=== PATIENT | male | born 1965 | race Caucasian/White ===

== ENCOUNTER 2023-04-13 06:22 | Day surgery (SDC) | payer OTHER, SELFPAY ==
[2023-04-13 08:12] LABS: Glucose - Point of Care 210 mg/dl (70-99)
== END 2023-04-20 01:00 ==
LOC: GI 06:22
PROVIDERS: ATTENDING PHYSICIAN Internal Medicine
DX: I85.00 Esophageal varices without bleeding (principal); Z86.010 Personal history of colon polyps; Z53.8 Procedure and treatment not carried out for other reasons
CPT/HCPCS: 45378; 82962; G0378

== ENCOUNTER → 2023-06-10 14:10 | Outpatient (REF) | payer OTHER, SELFPAY ==
[2023-06-10 14:13] LABS: % Basophils 1.1 % (0-2); % Immature Granulocytes 0.2 % (0-0.5); % Lymphocytes 21.9 % (20.5-51.1); % Monocytes 11.3 % (1.7-9.3); % Neutrophils 62.5 % (42.2-75.2); Absolute Basophils 0.1 10^3/uL (0-0.2); Absolute Eosinophils 0.1 10^3/uL (0-0.7); Absolute Monocytes 0.5 10^3/uL (0.1-0.6); Absolute Neutrophils 2.9 10^3/uL (1.4-6.5); Hematocrit 31.2 % (39.0-52.0); Hemoglobin 9.8 g/dL (13.0-18.0); Mean Corp Hgb Conc. 31.4 g/dL (33.0-37.0); Mean Corpuscular Hgb 27.1 pg (27.0-31.0); Mean Corpuscular Volume 86.4 fL (80.0-94.0); Mean Platelet Volume 12.5 fL (7.4-10.4); Nucleated Red Blood Cells % 0 % (-); Platelet Count 160 10^3/uL (130-400); Red Blood Cell Count 3.61 10^6/uL (4.70-6.10); Red Cell Dist. Width 22.1 % (11.5-14.5); White Blood Cell Count 4.6 10^3/uL (4.8-10.8)
== END ==
LOC: OIDL 14:10
PROVIDERS: ATTENDING PHYSICIAN Internal Medicine Hematology & Oncology
DX: D50.9 Iron deficiency anemia, unspecified (principal)
CPT/HCPCS: 85025

== ENCOUNTER → 2023-06-17 15:58 | Outpatient (REF) | payer OTHER, SELFPAY ==
[2023-06-17 15:28] LABS: % Basophils 1.1 % (0-2); % Immature Granulocytes 0.2 % (0-0.5); % Lymphocytes 21.7 % (20.5-51.1); % Monocytes 12.1 % (1.7-9.3); % Neutrophils 62.9 % (42.2-75.2); Absolute Basophils 0.1 10^3/uL (0-0.2); Absolute Eosinophils 0.1 10^3/uL (0-0.7); Absolute Monocytes 0.5 10^3/uL (0.1-0.6); Absolute Neutrophils 2.8 10^3/uL (1.4-6.5); Hematocrit 34.6 % (39.0-52.0); Hemoglobin 11.1 g/dL (13.0-18.0); Mean Corp Hgb Conc. 32.1 g/dL (33.0-37.0); Mean Corpuscular Hgb 27.9 pg (27.0-31.0); Mean Corpuscular Volume 86.9 fL (80.0-94.0); Mean Platelet Volume 12.6 fL (7.4-10.4); Nucleated Red Blood Cells % 0 % (-); Platelet Count 154 10^3/uL (130-400); Red Blood Cell Count 3.98 10^6/uL (4.70-6.10); Red Cell Dist. Width 21.1 % (11.5-14.5); White Blood Cell Count 4.5 10^3/uL (4.8-10.8)
== END ==
LOC: OIDL 15:58
PROVIDERS: ATTENDING PHYSICIAN Internal Medicine Hematology & Oncology
DX: D50.9 Iron deficiency anemia, unspecified (principal)
CPT/HCPCS: 85025

== ENCOUNTER → 2023-06-24 15:18 | Outpatient (REF) | payer OTHER, SELFPAY ==
[2023-06-24 14:24] LABS: % Eosinophils 1.6 % (0-6); % Immature Granulocytes 0.3 % (0-0.5); % Lymphocytes 20.3 % (20.5-51.1); % Monocytes 8.7 % (1.7-9.3); % Neutrophils 68.1 % (42.2-75.2); Absolute Basophils 0.1 10^3/uL (0-0.2); Absolute Eosinophils 0.1 10^3/uL (0-0.7); Absolute Lymphocytes 1.2 10^3/uL (1.2-3.4); Absolute Monocytes 0.5 10^3/uL (0.1-0.6); Absolute Neutrophils 3.9 10^3/uL (1.4-6.5); Hematocrit 36.2 % (39.0-52.0); Hemoglobin 12.1 g/dL (13.0-18.0); Mean Corp Hgb Conc. 33.4 g/dL (33.0-37.0); Mean Corpuscular Hgb 28.1 pg (27.0-31.0); Mean Corpuscular Volume 84.2 fL (80.0-94.0); Nucleated Red Blood Cells % 0 % (-); Platelet Count 180 10^3/uL (130-400); Red Cell Dist. Width 20.9 % (11.5-14.5); White Blood Cell Count 5.8 10^3/uL (4.8-10.8)
== END ==
LOC: OIDL 15:18
PROVIDERS: ATTENDING PHYSICIAN Internal Medicine Hematology & Oncology
DX: D50.9 Iron deficiency anemia, unspecified (principal)
CPT/HCPCS: 85025

== ENCOUNTER → 2023-07-08 15:34 | Outpatient (REF) | payer OTHER, SELFPAY ==
[2023-07-08 14:02] LABS: % Eosinophils 2.3 % (0-6); % Immature Granulocytes 0.3 % (0-0.5); % Lymphocytes 22.7 % (20.5-51.1); % Monocytes 9.9 % (1.7-9.3); % Neutrophils 63.8 % (42.2-75.2); Absolute Eosinophils 0.1 10^3/uL (0-0.7); Absolute Lymphocytes 0.9 10^3/uL (1.2-3.4); Absolute Monocytes 0.4 10^3/uL (0.1-0.6); Absolute Neutrophils 2.4 10^3/uL (1.4-6.5); Hematocrit 32.5 % (39.0-52.0); Hemoglobin 10.6 g/dL (13.0-18.0); Mean Corp Hgb Conc. 32.6 g/dL (33.0-37.0); Mean Corpuscular Hgb 29.4 pg (27.0-31.0); Mean Corpuscular Volume 90.3 fL (80.0-94.0); Nucleated Red Blood Cells % 0 % (-); Red Cell Dist. Width 22.1 % (11.5-14.5); White Blood Cell Count 3.8 10^3/uL (4.8-10.8)
[2023-07-08 14:20] LABS: Platelet Count 99 10^3/uL (130-400)
== END ==
LOC: OIDL 15:34
PROVIDERS: ATTENDING PHYSICIAN Internal Medicine Hematology & Oncology
DX: D50.9 Iron deficiency anemia, unspecified (principal)
CPT/HCPCS: 85025

== ENCOUNTER 2023-07-20 06:09 | Day surgery (SDC) | payer OTHER, SELFPAY ==
[2023-07-20 09:23] LABS: Glucose - Point of Care 429 mg/dl (70-99)
[2023-07-20 09:44] VITALS: BMI 31.8
[2023-07-20 09:45] VITALS: BMI 31.8
[2023-07-20 09:49] VITALS: BP 108/74
[2023-07-20 10:00] LABS: Glucose 394 mg/dl (70-99)
[2023-07-20] MEDS: NOVOLOG vial 8 UNITS SC (10:30)
[2023-07-20 12:41] VITALS: BP 80/70
[2023-07-20 12:43] VITALS: BP 92/65
[2023-07-20 12:43] LABS: Glucose - Point of Care 299 mg/dl (70-99)
[2023-07-20 12:51] VITALS: BP 93/53
[2023-07-20 13:00] VITALS: BP 93/50
== END 2023-07-20 13:21 | disposition home or self-care (01) ==
LOC: SDS 06:09
PROVIDERS: ATTENDING PHYSICIAN Internal Medicine
DX: Z12.11 Encounter for screening for malignant neoplasm of colon (principal); K51.40 Inflammatory polyps of colon without complications; K63.89 Other specified diseases of intestine; K64.8 Other hemorrhoids; K74.60 Unspecified cirrhosis of liver; I85.10 Secondary esophageal varices without bleeding; K29.70 Gastritis, unspecified, without bleeding; Z86.010 Personal history of colon polyps
CPT/HCPCS: 45385; 43239; 88305; 82947; 82962; 88342

== ENCOUNTER → 2023-09-16 16:10 | Outpatient (REF) | payer OTHER, SELFPAY ==
[2023-09-16 14:21] LABS: % Basophils 1.1 % (0-2); % Immature Granulocytes 0.2 % (0-0.5); % Monocytes 9.2 % (1.7-9.3); % Neutrophils 63.5 % (42.2-75.2); Absolute Basophils 0.1 10^3/uL (0-0.2); Absolute Eosinophils 0.1 10^3/uL (0-0.7); Absolute Lymphocytes 1.1 10^3/uL (1.2-3.4); Absolute Monocytes 0.4 10^3/uL (0.1-0.6); Hematocrit 36.4 % (39.0-52.0); Hemoglobin 12.4 g/dL (13.0-18.0); Mean Corp Hgb Conc. 34.1 g/dL (33.0-37.0); Mean Corpuscular Hgb 31.6 pg (27.0-31.0); Mean Corpuscular Volume 92.9 fL (80.0-94.0); Mean Platelet Volume 12.3 fL (7.4-10.4); Nucleated Red Blood Cells % 0 % (-); Platelet Count 114 10^3/uL (130-400); Red Blood Cell Count 3.92 10^6/uL (4.70-6.10); Red Cell Dist. Width 14.3 % (11.5-14.5); White Blood Cell Count 4.7 10^3/uL (4.8-10.8)
== END ==
LOC: OIDL 16:10
PROVIDERS: ATTENDING PHYSICIAN Internal Medicine Hematology & Oncology
DX: D50.9 Iron deficiency anemia, unspecified (principal)
CPT/HCPCS: 85025

== ENCOUNTER → 2023-10-07 16:18 | Outpatient (REF) | payer OTHER, SELFPAY ==
[2023-10-07 16:19] LABS: % Basophils 0.9 % (0-2); % Eosinophils 3.1 % (0-6); % Immature Granulocytes 0.2 % (0-0.5); % Lymphocytes 24.4 % (20.5-51.1); % Monocytes 8.7 % (1.7-9.3); % Neutrophils 62.7 % (42.2-75.2); Absolute Eosinophils 0.1 10^3/uL (0-0.7); Absolute Lymphocytes 1.1 10^3/uL (1.2-3.4); Absolute Monocytes 0.4 10^3/uL (0.1-0.6); Absolute Neutrophils 2.8 10^3/uL (1.4-6.5); Hematocrit 35.8 % (39.0-52.0); Hemoglobin 12.1 g/dL (13.0-18.0); Mean Corp Hgb Conc. 33.8 g/dL (33.0-37.0); Mean Corpuscular Hgb 30.8 pg (27.0-31.0); Mean Corpuscular Volume 91.1 fL (80.0-94.0); Mean Platelet Volume 11.9 fL (7.4-10.4); Nucleated Red Blood Cells % 0 % (-); Platelet Count 123 10^3/uL (130-400); Red Blood Cell Count 3.93 10^6/uL (4.70-6.10); Red Cell Dist. Width 14.5 % (11.5-14.5); White Blood Cell Count 4.5 10^3/uL (4.8-10.8)
== END ==
LOC: OIDL 16:18
PROVIDERS: ATTENDING PHYSICIAN Internal Medicine Hematology & Oncology
DX: D50.9 Iron deficiency anemia, unspecified (principal)
CPT/HCPCS: 85025

== ENCOUNTER → 2024-01-06 14:50 | Outpatient (REF) | payer OTHER, SELFPAY ==
[2024-01-06 15:02] LABS: % Basophils 1.3 % (0-2); % Eosinophils 2.4 % (0-6); % Immature Granulocytes 0.2 % (0-0.5); % Lymphocytes 22.6 % (20.5-51.1); % Monocytes 7.9 % (1.7-9.3); % Neutrophils 65.6 % (42.2-75.2); Absolute Basophils 0.1 10^3/uL (0-0.2); Absolute Eosinophils 0.1 10^3/uL (0-0.7); Absolute Monocytes 0.4 10^3/uL (0.1-0.6); Hematocrit 37.7 % (39.0-52.0); Hemoglobin 12.5 g/dL (13.0-18.0); Mean Corp Hgb Conc. 33.2 g/dL (33.0-37.0); Mean Corpuscular Hgb 30.9 pg (27.0-31.0); Mean Corpuscular Volume 93.3 fL (80.0-94.0); Mean Platelet Volume 11.8 fL (7.4-10.4); Nucleated Red Blood Cells % 0 % (-); Platelet Count 135 10^3/uL (130-400); Red Blood Cell Count 4.04 10^6/uL (4.70-6.10); Red Cell Dist. Width 13.2 % (11.5-14.5); White Blood Cell Count 4.6 10^3/uL (4.8-10.8)
== END ==
LOC: OIDL 14:50
PROVIDERS: ATTENDING PHYSICIAN Internal Medicine Hematology & Oncology
DX: D50.9 Iron deficiency anemia, unspecified (principal); I85.00 Esophageal varices without bleeding; N18.32 Chronic kidney disease, stage 3b
CPT/HCPCS: 85025

== ENCOUNTER → 2024-02-21 10:36 | Outpatient (REF) | payer OTHER, SELFPAY | LOC: HWCARD 10:36 | PROVIDERS: ATTENDING PHYSICIAN Nurse Practitioner Family; FAMILY PHYSICIAN Family Medicine | DX: D64.9 Anemia, unspecified (principal); I50.9 Heart failure, unspecified; I07.9 Rheumatic tricuspid valve disease, unspecified; R00.0 Tachycardia, unspecified | CPT/HCPCS: 71046; 93005 ==

== ENCOUNTER 2024-11-14 18:34 | Emergency (ER) | payer OTHER, SELFPAY ==
[2024-11-14 18:36] VITALS: BP 134/86
[2024-11-14 18:52] LABS: Hematocrit 35.7 % (39.0-52.0); Hemoglobin 11.5 g/dL (13.0-18.0); Mean Corp Hgb Conc. 32.2 g/dL (33.0-37.0); Mean Corpuscular Volume 87.9 fL (80.0-94.0); Nucleated Red Blood Cells % 0 % (-); Platelet Count 168 10^3/uL (130-400); Red Cell Dist. Width 17.2 % (11.5-14.5); Urine Character Cloudy (Clear)
[2024-11-14 19:08] LABS: Urine Squamous Cell 0-2 /LPF (Few)
[2024-11-14 19:09] LABS: Urine Red Blood Cell >100 /HPF (0-2)
[2024-11-14 19:31] LABS: ALT (SGPT) 24 U/L (0-50); AST (SGOT) 29 U/L (17-59); Albumin 4.6 g/dl (3.5-5.0); Alkaline Phosphatase 140 U/L (38-126); Blood Urea Nitrogen 27 mg/dl (9-20); Calcium 9.2 mg/dl (8.4-10.2); Carbon Dioxide 24 mmol/L (22-30); Chloride 104 mmol/L (98-107); Glucose 164 mg/dl (70-99); Potassium 4.0 mmol/L (3.5-5.1); Sodium 138 mmol/L (135-145); Total Protein 8.1 g/dl (6.3-8.2); eGFR > 60.00
[2024-11-14 22:13] VITALS: BMI 33.2
[2024-11-14 22:17] VITALS: BP 113/79
[2024-11-14 22:55] VITALS: BP 103/63
--- NOTE | 2024-11-14 23:42 | ED.GENMED ---
History of Present Illness
General
Chief Complaint: Male Genito-Urinary Symptoms
Source: patient, spouse and previous hospital records (Prior hospitalization November 2022. Hospitalized for right upper quadrant pain, found to have portal vein thrombosis related to cirrhosis. Also found to have atrial flutter, started on
Eliquis. Eliquis has since been discontinued.)
Exam Limitations: none
Time Seen by Provider: 11/14/24 22:08
Nursing documentation reviewed up to this point in time: agreed with
History of Present Illness
History of Present Illness:
This is a 59-year-old male who presents with his with complaints of gross hematuria that began mildly last night, persistent throughout the day today.
No history of similar episodes in the past.
He describes his urine as dark red, occasional clots. He denies any pain, no back pain nor flank pain, no suprapubic discomfort, no dysuria no urgency nor frequency. He does however note of vague fullness, heaviness right upper quadrant. He has
had no nausea or vomiting. No fever nor chills. No diarrhea nor constipation. Appetite has been good.
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
varices, nzg-giusgup-dccxpqtna diabetes, A-fib flutter. Hospitalized November 2022 due to right upper quadrant pain and found to have portal vein thrombosis at that time. Also noted to have atrial flutter. Started on Eliquis during that
hospitalization. Eliquis has since been discontinued. He takes no anticoagulants. No history of recurrent thrombosis.
Patient has no prior history of UTIs, no history of kidney stones but reports family history of kidney stones in his mom and brother. No history of BPH.
He does note intermittent mild dizziness, lightheadedness, sporadic in nature with last episode 3 weeks ago. Intermittent dizziness/lightheadedness has been an ongoing issue, overall mild and infrequent. 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
beta-alecia.
Review of records. Patient underwent screening colonoscopy July 2023.
Hospitalization November 2022 as above.
Prior to that hospitalized 2019 for GI bleed. Endoscopy and colonoscopy at that time showed grade 2 esophageal varices without evidence of recent bleeding. 1 polyp in the cecum.
Past History
Past History
ED Past Medical History: Arrthythmia (afib), CHF, HTN, Hypercholesterolemia, NIDDM and Other (Clotting disorder, congenital one kidney, hepatitis C status posttreatment, cirrhosis, esophageal varices, GI bleed)
ED Past Surgical History: Cardiac (VSD repair)
Social History
Tobacco: Non-smoker
Alcohol: None
Personal:
Living: with family
Employment: Employed
Family History
Family History: Other (Kidney stones in mother and brother)
Phy Exam
Physical Exam
Physical Exam:
GENERAL: 59-year-old gentleman appears his stated age, awake and alert, pleasant, appears in no acute distress. is accompanying.
EYE: anicteric
NECK: Supple, nontender, no meningismus, no significant adenopathy.
ENT: oral mucosa is moist. No rhinorrhea.
CARDIAC: Irregularly irregular at a rate of 100, 3/6 holosystolic murmur
LUNGS: Clear breath sounds bilaterally, no acute respiratory distress, no wheezes/rales/rhonchi
ABDOMEN: Rotund, soft, nondistended, without focal tenderness, no r/g, no cvat. normoactive BS.
NEUROLOGICAL: Alert and oriented x3, no focal neuro deficits. Gait is zhu and steady.
SKIN: Warm and dry, normal color, skin intact. No rash.
MUSCULOSKELETAL: No C/C/E. peripheral pulses are full and equal b/l. No palpable tenderness.
PSYCH: Normal and appropriate interaction.
Course
Orders/Labs/Results
Orders:
Orders
11/14/24 18:46
Complete Blood Count/With Diff Urgent
Comprehensive Metabolic Panel Urgent
Urine Microscopic Reflex Cult Urgent
Urine Reflex Culture from [facility] [Urinalysis Reflex To Culture] Urgent
Date Specimen was Collected: 11/14/24
Time Specimen was Collected: 18:38
Urine Culture Urgent
WILFRED Source: U
Specimen Description:
Date Specimen was Collected: 11/14/24
Time Specimen was Collected: 18:38
11/14/24 22:39
CT Abd/pel Without Iv Or Oral Urgent
Comment:
Reason For Exam: gross hematuria, R abd pain, hx solitary kidney
11/15/24 00:00
Doxycycline [Vibramycin] 100 mg PO NOW STA
Abnormal Lab Results
11/14/24
18:46
RBC 4.06 L 10^6/uL
(4.70-6.10)
Hgb 11.5 L g/dL
(13.0-18.0)
Hct 35.7 L %
(39.0-52.0)
MCHC 32.2 L g/dL
(33.0-37.0)
RDW 17.2 H %
(11.5-14.5)
MPV 11.4 H fL
(7.4-10.4)
Lymphocytes % 20.0 L %
(20.5-51.1)
Monocytes % 9.7 H %
(1.7-9.3)
BUN 27 H mg/dl
(9-20)
Glucose 164 H mg/dl
(70-99)
Alkaline Phosphatase 140 H U/L
(38-126)
Ur Occult Blood Reflex 4+ A
(Negative)
Leukocyte Esterase Rfl 1+ A
(Negative)
Urine RBC >100 A /HPF
(0-2)
Urine Bacteria (Reflex) Moderate A
(Negative)
Urine Glucose 4+ A
(Negative)
Urine Albumin (Reflex) 3+ A
(Neg - Trace)
11/14/24 18:46
10/01/25 18:46
Vital Signs
Initial and Last Documented VS:
Initial Vital Signs
Temp Pulse Resp BP Pulse Ox
98 F 120 18 134/86 99
11/14/24 18:36 11/14/24 18:36 11/14/24 18:36 11/14/24 18:36 11/14/24 18:36
Last Documented Vital Signs
Temp Pulse Resp BP Pulse Ox
98.1 F 111 14 103/63 100
11/14/24 22:55 11/14/24 22:55 11/14/24 22:55 11/14/24 22:55 11/14/24 23:44
MDM/Problems Addressed
Differential Diagnosis Includes:
Differential diagnosis includes:
UTI
Kidney stone
Hemorrhagic cystitis
prostatitis
Bladder cancer
Glomerulonephritis
coagulation disorder
Renal artery thrombosis
pyelonephritis
Trauma to the urinary tract
MDM/Problems Addressed:
Overall well in appearance.
Admits to intermittent mild vague discomfort right upper quadrant but no definitive pain, nothing to suggest renal colic.
He does have solitary kidney but he is unsure as to which side. Upon review of records, solitary kidney is on the left.
Due to concern for potential nonobstructive kidney stone, renal mass, as well as history of solitary kidney, chronic kidney disease will check CT of the abdomen and pelvis.
Labs thus far are reassuring with normal white blood cell count, mild but stable anemia with hemoglobin of 11.5. Normal platelet count.
Chemistries reveal creatinine of 1.2, stable and at his baseline. BUN of 27, at his baseline.
Urinalysis shows greater than 100 RBCs, 6-10 WBCs. +1 leukocyte esterase
Moderate bacteria.
Urine culture is pending.
Will plan to initiate antibiotic for coverage of potential UTI as cause for hematuria/hemorrhagic cystitis.
Ultimately will require follow-up with urology.
Chronic conditions affecting care: DM, HTN, Cardiomyopathy, Arrhythmia, Kidney disease and Other (Portal vein thrombosis/cirrhosis-prior GI bleeds. Previously maintained on anticoagulant which has since been discontinued.)
*Radiology
Radiology exam reviewed: radiology read reviewed
*Pulse Oximetry
SaO2: 100
Oxygen Mode of Delivery: Room air
Patient hypoxic: no
*Critical Care Note
Total Time (30-74mins, 75-104mins- exclusive of procedures): Not Applicable
Patient Management
Social determinants of health affecting care: Other (Patient has a planned trip to [facility], leaving tomorrow, scheduled to return in 3 weeks time.)
Update Note
Update Note:
00:01
Patient remains comfortable.
CT abdomen pelvis shows solitary left kidney. No intrarenal nor ureteric stone. No hydronephrosis. Several cysts within the left kidney. No bladder calculus, no urinary bladder wall thickening nor soft tissue stranding. Prominent prostate gland.
Small focus of diminished attenuation along the left posterior lateral uncinate margin of the pancreas, similar to previous. Minor soft tissue stranding associated with the fat in the right paracolic gutter without bowel wall thickening.
Relatively stable small para-aortic lymph nodes.
Will initiate a course of doxycycline for potential UTI.
Discussed importance of staying well-hydrated on a daily basis.
Will plan for follow-up with urology upon return from [facility] in 3 weeks.
ED Attending Note
-
Portions of this chart may have been created with voice recognition software.� Occasional wrong word or��sound alike� substitutions may have occurred due to the inherent limitations of voice recognition software.
Discharge Plan
Departure
Patient Disposition: Home (Routine Discharge)
Date of Disposition: 11/15/24
Time of Disposition: 00:09
Patient with high blood pressure during this ER visit?: No
Condition: Good
Discharge Problem:
Gross hematuria
Instructions: Blood in the urine (hematuria) in adults
Prescriptions:
New
doxycycline monohydrate 100 mg capsule
100 mg PO BID Qty: 14 1RF
No Action
omeprazole 40 mg Capsule,Delayed Release(Dr/Ec)
40 mg PO DAILY
Jardiance 10 mg Tablet
10 mg PO DAILY
metoprolol succinate 100 mg Tablet Extended Release 24 Hr
100 mg PO BID 30 Days Qty: 60 0RF
diltiazem HCl 120 mg Capsule,Extended Release 24hr
120 mg PO DAILY 30 Days Qty: 30 0RF
bumetanide 2 mg Tablet
2 mg PO .3X'SPERWEEK
spironolactone 25 mg Tablet
25 mg PO DAILY
bumetanide 1 mg Tablet
1 mg PO .4 TIMES PER WEEK
Referrals:
Rajinder Schaffer MD [Active, Urology] - Call in 1-3 days for appt
Hortencia Aguirre DO [Family Provider, Family Practice]
Interventions
Interventions:
*Risk Screen - Suicide Last Done: 11/14/24 22:13
*General Assessment Last Done: 11/14/24 18:36
*Neglect/Abuse Screening Last Done: 11/14/24 22:13
*ED- Fall Risk Assessment Last Done: 11/14/24 22:13
*ED COVID-19 Vaccine History Last Done: 11/14/24 22:13
*ED Influenza Vaccine History Last Done: 11/14/24 22:13
ED-Male Genitourinary Assessment Last Done: 11/14/24 22:13
Discharge Date and Time
Print Language: INDONESIAN
[2024-11-15] MEDS: VIBRAMYCIN 100 MG PO (00:24)
== END 2024-11-15 00:31 | disposition home or self-care (01) ==
LOC: EMR 18:34
PROVIDERS: Emergency Medicine; EMERGENCY PHYSICIAN Emergency Medicine; FAMILY PHYSICIAN Family Medicine
DX: R31.0 Gross hematuria (principal); E11.22 Type 2 diabetes mellitus with diabetic chronic kidney disease; I13.0 Hypertensive heart and chronic kidney disease with heart failure and stage 1 through stage 4 chronic kidney disease, or unspecified chronic kidney disease; I50.9 Heart failure, unspecified; N18.30 Chronic kidney disease, stage 3 unspecified; D63.1 Anemia in chronic kidney disease; Z86.19 Personal history of other infectious and parasitic diseases; E78.00 Pure hypercholesterolemia, unspecified; N28.1 Cyst of kidney, acquired; I48.91 Unspecified atrial fibrillation; K74.60 Unspecified cirrhosis of liver
CPT/HCPCS: 99284; 74176; 80053; 81003; 81015; 85025; 87086